=== PATIENT | male | born 1975 | race American Indian/Alaskan Native ===

== ENCOUNTER 2020-10-22 06:35 | Emergency (ER) | payer SELFPAY ==
[2020-10-22] MEDS ORDERED: ASPIRIN 325 MG TAB PO ONE (06:48)
[2020-10-22 07:03] LABS: Basophils # (Auto) 0.1 K/mm3 (0.0-0.1); Basophils % (Auto) 1.1 % (0.0-1.8); Eosinophils # (Auto) 0.4 K/mm3 (0.0-0.4); Eosinophils % (Auto) 4.1 % (0.0-4.3); Hematocrit 40.9 % (35.5-45.6); Hemoglobin 14.6 gm/dl (11.8-15.2); Lymphocytes # (Auto) 2.1 K/mm3 (1.2-5.4); Mean Corpuscular HGB Conc 36 % (32-34); Mean Corpuscular Volume 90 fl (84-94); Monocytes # (Auto) 0.6 K/mm3 (0.0-0.8); Monocytes % (Auto) 7.3 % (0.0-7.3); Platelet Count 300 K/mm3 (140-440); Red Blood Count 4.54 M/mm3 (3.65-5.03); Red Cell Distribution Width 13.2 % (13.2-15.2)
[2020-10-22 07:28] LABS: Alanine Aminotransferase 23 units/L (7-56); Albumin 4.6 g/dL (3.9-5); BUN/Creatinine Ratio 10; Blood Urea Nitrogen 9 mg/dL (9-20); Calcium 10.1 mg/dL (8.4-10.2); Hemolysis Index 4
--- NOTE | 2020-10-22 07:51 | XRay Report ---
CHEST 2 VIEWS INDICATION: sharp CP radiating to back. COMPARISON: None at this facility FINDINGS: Support devices: None. Heart: Within normal limits. Lungs/pleura: No acute air space or interstitial disease. No pneumothorax. Additional findings: None. IMPRESSION: No acute findings. Signer Name: Tariq Sims Jr, MD Signed: 10/22/2020 7:47 AM Workstation Name: [id number]
[2020-10-22] MEDS ORDERED: IBUPROFEN 800 MG TAB PO ONE (09:01)
--- NOTE | 2020-10-22 09:09 | Emergency Department Report ---
ED Chest Pain HPI - General Chief Complaint: Chest Pain Stated Complaint: CHEST PAINS PUI?: No Time Seen by Provider: 10/22/20 08:57 Source: patient Mode of arrival: Ambulatory Limitations: No Limitations - History of Present Illness Initial Comments: Chief complaint: "I started in my back." HPI: This is a 45-year-old male with history of hypertension who presents with back pain chest pain since yesterday. Patient states that the pain started in his back on yesterday morning. 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 Pain is now si tuated his left chest squeezing pain. Worse with palpation. Worse with movement. Worse with arm movement of the left side. Tums did not provide any relief. Ibuprofen provided mild relief. Patient does not have health insurance. Patient does not have access to primary care. 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 MD Complaint: chest pain -: Gradual, days(s) (1 day ago) Onset: during rest Pain Location: left chest Pain Radiation: none Severity: mild Severity scale (0 -10): 5 Quality: dull, squeezing Consistency: constant Improves With: rest Worsens With: palpation, movement Other Symptoms: other (Back pain). denies: cough Treatments Prior to Arrival: none - Related Data Previous Rx's Medication Instructions Recorded Last Taken Type Cyclobenzaprine [Flexeril] 10 mg PO TID PRN #20 tablet 10/22/20 Unknown Rx Ibuprofen [Motrin 400 MG tab] 400 mg PO TID 5 Days #15 tablet 10/22/20 Unknown Rx Allergies Allergy/AdvReac Type Severity Reaction Status Date / Time No Known Allergies Allergy Unverified 10/22/20 06:38 Heart Score - HEART Score History: Slightly suspicious EKG: Normal Age: < 45 Risk factors: 1-2 risk factors Troponin: < normal limit HEART Score: 1 - EKG Read Time Time EKG Completed: 06:41 EKG Read Time: 06:44 ED Review of Systems ROS: Stated complaint: CHEST PAINS Other details as noted in HPI Comment: All other systems reviewed and negative Constitutional: denies: fever, malaise Respiratory: denies: cough, shortness of breath Cardiovascular: chest pain, palpitations Gastrointestinal: denies: abdominal pain, nausea, vomiting Musculoskeletal: back pain ED Past Medical Hx - Past Medical History Previous Medical History?: Yes Hx Hypertension: Yes - Surgical History Past Surgical History?: No - Social History Smoking Status: Current Every Day Smoker Substance Use Type: Alcohol, Marijuana - Medications Home Medications: Home Medications Medication Instructions Recorded Confirmed Last Taken Type Cyclobenzaprine [Flexeril] 10 mg PO TID PRN #20 tablet 10/22/20 Unknown Rx Ibuprofen [Motrin 400 MG tab] 400 mg PO TID 5 Days #15 tablet 10/22/20 Unknown Rx ED Physical Exam - General Limitations: No Limitations General appearance: alert, in no apparent distress - Head Head exam: Present: atraumatic, normocephalic - Eye Eye exam: Present: normal appearance. Absent: scleral icterus, conjunctival injection, nystagmus - ENT ENT exam: Present: mucous membranes moist - Neck Neck exam: Present: normal inspection, full ROM - Respiratory Respiratory exam: Present: normal lung sounds bilaterally. Absent: respiratory distress - Cardiovascular Cardiovascular Exam: Present: regular rate, normal rhythm, normal heart sounds. Absent: systolic murmur, diastolic murmur, rubs, gallop - GI/Abdominal GI/Abdominal exam: Present: soft, normal bowel sounds. Absent: distended, tenderness, guarding - Rectal Rectal exam: Present: deferred - Neurological Exam Neurological exam: Present: alert, oriented X3 - Psychiatric Psychiatric exam: Present: normal affect, normal mood - Skin Skin exam: Present: warm, dry, intact, normal color. Absent: rash ED Course Vital Signs 10/22/20 06:38 Temperature 98.4 F Pulse Rate 117 H Respiratory 18 Rate Blood Pressure 164/105 O2 Sat by Pulse 96 Oximetry ED Medical Decision Making - Lab Data Result diagrams: 10/22/20 06:52 10/22/20 06:52 Laboratory Results - last 72 hr 10/22/20 10/22/20 06:52 06:52 WBC 8.6 RBC 4.54 Hgb 14.6 Hct 40.9 MCV 90 MCH 32 MCHC 36 H RDW 13.2 Plt Count 300 Lymph % (Auto) 24.0 [place] % (Auto) 7.3 Eos % (Auto) 4.1 Baso % (Auto) 1.1 Lymph # (Auto) 2.1 [place] # (Auto) 0.6 Eos # (Auto) 0.4 Baso # (Auto) 0.1 Seg Neutrophils % 63.5 Seg Neutrophils # 5.4 Sodium 135 L Potassium 3.3 L Chloride 96.7 L Carbon Dioxide 25 Anion Gap 17 BUN 9 Creatinine 0.9 Estimated GFR > 60 BUN/Creatinine Ratio 10 Glucose 133 H Calcium 10.1 Total Bilirubin 0.40 AST 18 ALT 23 Alkaline Phosphatase 74 Troponin T < 0.010 Total Protein 7.5 Albumin 4.6 Albumin/Globulin Ratio 1.6 - EKG Data EKG shows normal: sinus rhythm, axis, intervals, QRS complexes, ST-T waves Rate: tachycardia - EKG Data 10/22/20 09:07 EKG obtained 0641 EKG interpreted by me Sinus tachycardia rate 100 bpm normal axis normal intervals no ST-T sign ischemia - Radiology Data Radiology results: report reviewed Chest radiograph: No acute findings according to radiology report - Medical Decision Making 45-year-old male with history of hypertension presents with back pain chest pain. Pain is worse with palpation of the chest. Pain is worse with movement of the arm sitting position. Pain no longer is present in the back. I suspect chest wall strain. Troponin negative. EKG without ischemic changes. I prescribed ibuprofen and Flexeril. Referred to outpatient medicine physician. Critical care attestation.: If time is entered above; I have spent that time in minutes in the direct care of this critically ill patient, excluding procedure time. ED Disposition Clinical Impression: Chest wall muscle strain Disposition: DC-01 TO HOME OR SELFCARE Is pt being admited?: No Does the pt Need Aspirin: No Condition: Stable Instructions: Muscle Strain, [id number] Prescriptions: Cyclobenzaprine [Flexeril] 10 mg PO TID PRN #20 tablet PRN Reason: Muscle Spasm Ibuprofen [Motrin 400 MG tab] 400 mg PO TID 5 Days #15 tablet Referrals: SID CAMPOVERDE MD [Staff Physician] - 3-5 Days Forms: Work/School Release Form(ED)
[2020-10-22 09:18] VITALS: BP 171/116
--- NOTE | 2020-10-22 10:04 | Electrocardiograph Report ---
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
== END 2020-10-22 09:00 | disposition home or self-care (01) ==
LOC: ED 06:35
DX: S29.011A Strain of muscle and tendon of front wall of thorax, initial encounter (principal); I10 Essential (primary) hypertension; F17.200 Nicotine dependence, unspecified, uncomplicated; F12.90 Cannabis use, unspecified, uncomplicated; Z79.899 Other long term (current) drug therapy; X58.XXXA Exposure to other specified factors, initial encounter; Y93.89 Activity, other specified; Y92.89 Other specified places as the place of occurrence of the external cause; Y99.8 Other external cause status
CPT/HCPCS: 36415; 71046; 80053; 84484; 85025; 93005; 99283

== ENCOUNTER 2020-11-19 06:16 | Emergency (ER) | payer SELFPAY ==
[2020-11-19 07:26] VITALS: BP 158/107
--- NOTE | 2020-11-19 08:43 | Emergency Department Report ---
ED Lower Extremity HPI - General Chief Complaint: Extremity Injury, Lower Stated Complaint: RT KNEE PAIN/POSS INJURY Time Seen by Provider: 11/19/20 08:32 Source: patient Mode of arrival: Ambulatory Limitations: No Limitations - History of Present Illness Initial Comments: 45-year-old -[place] male presents to the emergency room for right knee pain that pops. Patient states that he has a history of ACL repair of his left knee and feels that he is overused his right knee. Patient denies any initial injury. Patient states that pain helps when he wears a knee brace. Complaint: knee injury (rt) Onset/Timin Injury: Knee: Right Severity scale (0 -10): 8 Improves With: immobilization Worsens With: weight bearing, movement Associated Symptoms: snap/pop sensation Treatments Prior to Arrival: NSAIDS - Related Data Previous Rx's Medication Instructions Recorded Last Taken Type Cyclobenzaprine [Flexeril] 10 mg PO TID PRN #20 tablet 10/22/20 Unknown Rx Ibuprofen [Motrin 400 MG tab] 400 mg PO TID 5 Days #15 tablet 10/22/20 Unknown Rx Meloxicam [Mobic] 15 mg PO QDAY #30 tablet 11/19/20 Unknown Rx Allergies Allergy/AdvReac Type Severity Reaction Status Date / Time No Known Allergies Allergy Verified 11/19/20 07:24 ED Review of Systems ROS: Stated complaint: RT KNEE PAIN/POSS INJURY Other details as noted in HPI Comment: All other systems reviewed and negative ED Past Medical Hx - Past Medical History Hx Hypertension: Yes - Surgical History Additional Surgical History: knee/hand - Social History Smoking Status: Current Every Day Smoker Substance Use Type: Alcohol, Marijuana - Medications Home Medications: Home Medications Medication Instructions Recorded Confirmed Last Taken Type Cyclobenzaprine [Flexeril] 10 mg PO TID PRN #20 tablet 10/22/20 Unknown Rx Ibuprofen [Motrin 400 MG tab] 400 mg PO TID 5 Days #15 tablet 10/22/20 Unknown Rx Meloxicam [Mobic] 15 mg PO QDAY #30 tablet 11/19/20 Unknown Rx ED Physical Exam - General Limitations: No Limitations General appearance: alert, in no apparent distress - Head Head exam: Present: atraumatic, normocephalic - Eye Eye exam: Present: normal appearance - ENT ENT exam: Present: mucous membranes moist - Neck Neck exam: Present: normal inspection, full ROM - Respiratory Respiratory exam: Absent: accessory muscle use - Cardiovascular Cardiovascular Exam: Present: regular rate - Expanded Lower Extremity Exam Right Knee exam: Present: full ROM, crepidus, full knee extension. Absent: tenderness, swelling, dislocation, erythema, effusion Lower Leg exam: Present: normal inspection, full ROM. Absent: tenderness Ankle exam: Present: normal inspection, full ROM. Absent: tenderness, swelling Neuro vascular tendon exam: Present: no vascular compromise - Back Exam Back exam: Present: normal inspection - Neurological Exam Neurological exam: Present: alert, oriented X3 - Psychiatric Psychiatric exam: Present: normal affect, normal mood - Skin Skin exam: Present: warm, dry, intact, normal color. Absent: rash ED Course Vital Signs 11/19/20 07:24 Temperature 98.0 F Pulse Rate 94 H Respiratory 16 Rate Blood Pressure 158/107 O2 Sat by Pulse 99 Oximetry ED Lower Extremity MDM - Radiology Data Radiology results: report reviewed [facility] [address] [place] [address] XRay Report Signed Patient: CHERELLE JOSEPH MR#: [id number] 350 : 1975 Acct:[id number] Age/Sex: 45 / M ADM Date: 11/19/20 Loc: ED Attending Dr: Ordering Physician: MAGDI SIMENTAL Date of Service: 11/19/20 Procedure(s): XR knee 3V RT Accession Number(s): [id number] cc: MAGDI SIMENTAL Fluoro Time In Minutes: RIGHT KNEE 3 VIEWS INDICATION: Right knee injury and pain. COMPARISON: None. IMPRESSION: Moderate to severe osteoarthritic changes are identified in the m edial compartment and patellofemoral space. There is relative sparing of the lateral compartment. Moderate tibial spine spurring is also identified. No acute osseous injury or suspicious bone lesion is detected. A large joint effusion is identified on the lateral image. Signer Name: Tariq Sims Jr, MD Signed: 11/19/2020 8:53 AM Workstation Name: [id number] Transcribed By: TTR Dictated By: TARIQ SIMS JR, MD Electronically Authenticated By: TARIQ SIMS JR, MD Signed Date/Time: 11/19/20852 DD/ 0852 TD/TT: Print Critical care attestation.: If time is entered above; I have spent that time in minutes in the direct care of this critically ill patient, excluding procedure time. ED Disposition Clinical Impression: Osteoarthritis of right knee Disposition: DC-01 TO HOME OR SELFCARE Is pt being admited?: No Does the pt Need Aspirin: No Condition: Stable Instructions: Preventing Osteoarthritis, Adult, Arthritis, [id number] Additional Instructions: Your x-rays of your knee shows moderate to severe arthritis. I recommend taking pain medication and following up with the orthopedic provider. Continue wearing your knee immobilizer as that helps with your discomfort. Prescriptions: Meloxicam [Mobic] 15 mg PO QDAY #30 tablet Referrals: WILBER BENJAMIN MD [Staff Physician] - 3-5 Days Forms: Work/School Release Form(ED) Time of Disposition: 09:34
--- NOTE | 2020-11-19 08:58 | XRay Report ---
RIGHT KNEE 3 VIEWS INDICATION: Right knee injury and pain. COMPARISON: None. IMPRESSION: Moderate to severe osteoarthritic changes are identified in the medial compartment and p atellofemoral space. There is relative sparing of the lateral compartment. Moderate tibial spine spur ring is also identified. No acute osseous injury or suspicious bone lesion is detected. A large joint effusion is identified on the lateral image. Signer Name: Tariq Sims Jr, MD Signed: 11/19/2020 8:53 AM Workstation Name: [id number]
== END 2020-11-19 09:48 | disposition home or self-care (01) ==
LOC: ED 06:16
DX: M17.11 Unilateral primary osteoarthritis, right knee (principal); I10 Essential (primary) hypertension; F17.200 Nicotine dependence, unspecified, uncomplicated; F12.90 Cannabis use, unspecified, uncomplicated; Z79.899 Other long term (current) drug therapy; Z98.890 Other specified postprocedural states

== ENCOUNTER 2021-04-02 18:16 | Emergency (ER) | payer SELFPAY ==
[2021-04-02] MEDS ORDERED: SODIUM CHLORIDE 0.9% 1000 ML 1,000 ML IV ONE (18:24)
[2021-04-02] MEDS ORDERED: LORazepam 2 MG/ML VIAL IV ONE (18:25)
[2021-04-02 18:53] LABS: Basophils # (Auto) 0.1 K/mm3 (0.0-0.1); Basophils % (Auto) 0.8 % (0.0-1.8); Eosinophils # (Auto) 0.3 K/mm3 (0.0-0.4); Eosinophils % (Auto) 2.9 % (0.0-4.3); Hematocrit 45.1 % (35.5-45.6); Lymphocytes # (Auto) 4.2 K/mm3 (1.2-5.4); Lymphocytes % (Auto) 41.9 % (13.4-35.0); Mean Corpuscular HGB Conc 33 % (32-34); Mean Corpuscular Volume 93 fl (84-94); Monocytes # (Auto) 0.7 K/mm3 (0.0-0.8); Monocytes % (Auto) 7.3 % (0.0-7.3); Platelet Count 398 K/mm3 (140-440); Red Blood Count 4.87 M/mm3 (3.65-5.03); Red Cell Distribution Width 14.1 % (13.2-15.2)
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
[2021-04-02 19:09] LABS: BUN/Creatinine Ratio 11; Blood Urea Nitrogen 12 mg/dL (9-20); Calcium 9.5 mg/dL (8.4-10.2); Hemolysis Index 10
[2021-04-02] MEDS ORDERED: TETANUS,DIPH,PERTUSS(ACELL) VACCINE 0.5 ML SYRINGE IM ONE (19:15)
[2021-04-02] MEDS ORDERED: DICYCLOMINE 20 MG/2 ML INJ IM ONE (19:29)
[2021-04-02] MEDS ORDERED: FAMOTIDINE 20 MG/2 ML INJ IV ONE (19:29)
[2021-04-02] MEDS ORDERED: HYDROcodone/ACETAMINOPHEN 7.5-325MG TAB PO ONE (19:42)
[2021-04-02] MEDS: KETOROLAC 30 MG/1 ML INJ IV ONE ×2 (19:46→19:48)
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
[2021-04-02 22:02] VITALS: BP 161/97
== END 2021-04-02 21:50 | disposition home or self-care (01) ==
LOC: ED 18:16
DX: S92.492A Other fracture of left great toe, initial encounter for closed fracture (principal); F14.120 Cocaine abuse with intoxication, uncomplicated; I10 Essential (primary) hypertension; F17.200 Nicotine dependence, unspecified, uncomplicated; Z72.89 Other problems related to lifestyle; Z79.899 Other long term (current) drug therapy; W34.00XA Accidental discharge from unspecified firearms or gun, initial encounter; Y93.89 Activity, other specified; Y92.89 Other specified places as the place of occurrence of the external cause; Y99.8 Other external cause status
CPT/HCPCS: 29515; 36415; 73630; 80048; 84484; 85025; 90471; 90715; 96365; 96372; 96375; 99284; J0500; J0690; J1885; J3490; J7030; Q0162

== ENCOUNTER 2021-09-15 14:00 | Emergency (ER) | payer BC ==
[2021-09-15] MEDS ORDERED: dexAMETHasone 4 MG/ML VIAL IM ONE (17:00)
[2021-09-15] MEDS ORDERED: KETOROLAC 10 MG TAB PO ONE (17:01)
[2021-09-15] MEDS ORDERED: CYCLOBENZAPRINE 10 MG TAB PO ONE (17:01)
[2021-09-15] MEDS ORDERED: ACETAMINOPHEN W/CODEINE 300-30 MG TAB PO ONE (17:01)
--- NOTE | 2021-09-15 17:09 | Emergency Department Report ---
ED Extremity Problem HPI - General Chief complaint: Extremity Problem,Nontraumatic Stated complaint: RIGHT KNEE AND HIP PAIN Time Seen by Provider: 09/15/21 16:34 Source: patient Mode of arrival: Ambulatory Limitations: No Limitations - History of Present Illness Initial comments: 46-year-old black male presents to the emergency department for evaluation of 1 week history of worsening right knee pain. He states that he has a history of arthritis to his right knee, but the past few days pain has been worse. He denies injury or trauma but states that pain is 8 out of 10 and worse with ambulation. He denies fever or drainage from area. MD Complaint: extremity pain, extremity swelling -: Gradual, week(s) Location: right, knee (1) History of Same: Yes -: No myalgia, Yes arthralgia, No fever, No associated dyspnea, No associated chest pain Severity scale (0 -10): 8 Quality: aching Consistency: constant Worsens with: weight bearing, walking Associated Symptoms: arthralgias. denies: chest pain, shortness of breath, fever, myalgias, rash - Related Data Previous Rx's Medication Instructions Recorded Last Taken Type Cyclobenzaprine [Flexeril] 10 mg PO TID PRN #20 tablet 10/22/20 Unknown Rx Ibuprofen [Motrin 400 MG tab] 400 mg PO TID 5 Days #15 tablet 10/22/20 Unknown Rx Meloxicam [Mobic] 15 mg PO QDAY #30 tablet 11/19/20 Unknown Rx Amoxicillin/Potassium Clav 1 each PO BID #14 tablet 04/02/21 Unknown Rx [Augmentin 875-125 Tablet] HYDROcodone/APAP 5-325 [[place] 1 each PO Q6HR PRN #20 tablet 04/02/21 Unknown Rx 5/325] Ibuprofen [Motrin 800 MG tab] 800 mg PO Q8HR PRN #20 tablet 04/02/21 Unknown Rx Ondansetron [Zofran Odt] 4 mg PO Q8HR #10 tab.rapdis 04/02/21 Unknown Rx Lidocaine [Lidoderm] 1 each TP DAILY PRN #10 patch 09/15/21 Unknown Rx Naproxen [Naprosyn] 500 mg PO BID #14 tab 09/15/21 Unknown Rx methylPREDNISolone [Medrol 4MG 4 mg PO DAILY #1 pack 09/15/21 Unknown Rx DOSEPAK (21 tabs)] Allergies Allergy/AdvReac Type Severity Reaction Status Date / Time No Known Allergies Allergy Verified 09/15/21 16:54 ED Review of Systems ROS: Stated complaint: RIGHT KNEE AND HIP PAIN Other details as noted in HPI Comment: All other systems reviewed and negative Constitutional: denies: chills, fever ENT: denies: congestion Respiratory: denies: cough, orthopnea, shortness of breath, SOB with exertion, SOB at rest, stridor, wheezing Cardiovascular: denies: chest pain, palpitations, dyspnea on exertion, orthopnea, edema, syncope, paroxysmal nocturnal dyspnea Gastrointestinal: denies: abdominal pain, nausea, vomiting Genitourinary: denies: urgency, dysuria, frequency, hematuria, discharge Musculoskeletal: arthralgia. denies: back pain Neurological: denies: headache, weakness, numbness, paresthesias, confusion, abnormal gait, vertigo ED Past Medical Hx - Past Medical History Hx Hypertension: Yes - Surgical History Additional Surgical History: knee/hand - Social History Smoking Status: Never Smoker Substance Use Type: None - Medications Home Medications: Home Medications Medication Instructions Recorded Confirmed Last Taken Type Cyclobenzaprine [Flexeril] 10 mg PO TID PRN #20 tablet 10/22/20 09/15/21 Unknown Rx Ibuprofen [Motrin 400 MG tab] 400 mg PO TID 5 Days #15 tablet 10/22/20 09/15/21 Unknown Rx Meloxicam [Mobic] 15 mg PO QDAY #30 tablet 11/19/20 09/15/21 Unknown Rx Amoxicillin/Potassium Clav 1 each PO BID #14 tablet 04/02/21 09/15/21 Unknown Rx [Augmentin 875-125 Tablet] HYDROcodone/APAP 5-325 [[place] 1 each PO Q6HR PRN #20 tablet 04/02/21 09/15/21 Unknown Rx 5/325] Ibuprofen [Motrin 800 MG tab] 800 mg PO Q8HR PRN #20 tablet 04/02/21 09/15/21 Unknown Rx Ondansetron [Zofran Odt] 4 mg PO Q8HR #10 tab.rapdis 04/02/21 09/15/21 Unknown Rx Lidocaine [Lidoderm] 1 each TP DAILY PRN #10 patch 09/15/21 Unknown Rx Naproxen [Naprosyn] 500 mg PO BID #14 tab 09/15/21 Unknown Rx methylPREDNISolone [Medrol 4MG 4 mg PO DAILY #1 pack 09/15/21 Unknown Rx DOSEPAK (21 tabs)] ED Physical Exam - General Limitations: No Limitations General appearance: alert, in no apparent distress - Head Head exam: Present: atraumatic - Eye Eye exam: Present: normal appearance. Absent: conjunctival injection - Neck Neck exam: Present: normal inspection, full ROM. Absent: lymphadenopathy - Respiratory Respiratory exam: Absent: respiratory distress - Cardiovascular Cardiovascular Exam: Present: regular rate - GI/Abdominal GI/Abdominal exam: Present: soft. Absent: distended - Expanded Lower Extremity Exam Right Knee exam: Present: full ROM, tenderness, swelling, effusion. Absent: abrasion, laceration, ecchymosis, deformity, crepidus, dislocation, erythema Neuro vascular tendon exam: Present: no vascular compromise. Absent: pulse deficit, abnormal cap refill, motor deficit, sensory deficit, extremity cold to touch, pallor Gait: Positive: observed and limited by pain - Back Exam Back exam: Present: normal inspection. Absent: CVA tenderness (R), CVA tenderness (L) - Neurological Exam Neurological exam: Present: alert, oriented X3 - Psychiatric Psychiatric exam: Present: normal affect, normal mood - Skin Skin exam: Present: warm, dry, intact, normal color ED Course Vital Signs 09/15/21 09/15/21 14:42 16:51 Temperature 98.8 F 98.8 F Pulse Rate 98 H 80 Respiratory 18 18 Rate Blood Pressure 152/92 125/78 [Right] O2 Sat by Pulse 99 100 Oximetry ED Medical Decision Making - Medical Decision Making 46-year-old black male presents to the emergency department for evaluation of 1 week history of worsening right knee pain. He states that he has a history of arthritis to his right knee, but the past few days pain has been worse. He denies injury or trauma but states that pain is 8 out of 10 and worse with ambulation. He denies fever or drainage from area. Per previous x-ray, patient has known moderate to severe right knee osteoarthritis. He will be treated with Decadron 8 mg IM, Flexeril 10 mg p.o., and Toradol 10 mg p.o. while in the emergency department then discharged home with Medrol Dosepak, naproxen, and Lidoderm patch to use as needed for pain. He is advised to follow-up with orthopedic for further evaluation and management. He verbalizes understanding of and agreement with plan of care. Critical care attestation.: If time is entered above; I have spent that time in minutes in the direct care of this critically ill patient, excluding procedure time. ED Disposition Clinical Impression: Right knee pain Qualifiers: Chronicity: chronic Qualified Code(s): M25.561 - Pain in right knee; G89.29 - Other chronic pain Disposition: HOME / SELF CARE / HOMELESS Is pt being admited?: No Does the pt Need Aspirin: No Condition: Stable Instructions: Musculoskeletal Pain, Acute Knee Pain, Adult, [id number], Joint Pain, [id number], How to Use Cold Therapy, [id number], Arthritis, [id number] Additional Instructions: Take medications as prescribed. Follow-up with orthopedics for further evaluation and management. Return to the ER as needed. Prescriptions: Lidocaine [Lidoderm] 1 each TP DAILY PRN #10 patch PRN Reason: Pain, Moderate (4-6) methylPREDNISolone [Medrol 4MG DOSEPAK (21 tabs)] 4 mg PO DAILY #1 pack Naproxen [Naprosyn] 500 mg PO BID #14 tab Referrals: WILBER BENJAMIN MD [Staff Physician] - 3-5 Days Forms: Work/School Release Form(ED) Time of Disposition: 17:26
[2021-09-15 18:05] VITALS: BP 118/74
== END 2021-09-15 18:05 | disposition home or self-care (01) ==
LOC: ED 14:00
DX: M25.561 Pain in right knee (principal); I10 Essential (primary) hypertension; Z98.890 Other specified postprocedural states
CPT/HCPCS: 96372; 99282; J1100

== ENCOUNTER 2021-11-20 11:04 | Outpatient (CLI) | payer BC ==
--- NOTE | 2021-11-20 13:44 | XRay Report ---
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 COMPARISON: None available. FINDINGS: VERTEBRAE: No acute fracture. No significant malalignment. DISC SPACES / FACET JOINTS:No significant abnormality. PARASPINAL SOFT TISSUES:No significant abnormality. ADDITIONAL FINDINGS: None. Signer Name: Moy Carlos DO Signed: 11/20/2021 1:40 PM Workstation Name: [id number]
--- NOTE | 2021-11-20 13:45 | XRay Report ---
BILATERAL KNEE 2 VIEW(S) INDICATION / CLINICAL INFORMATION: M25.561 AND M25.562 BILATERAL KNEE PAIN COMPARISON: None available. FINDINGS: BONES / JOINT(S): No acute fracture or subluxation. There is severe tricompartment DJD of the left kn ee. There is moderate to severe tricompartment DJD of the right knee. SOFT TISSUES: No significant abnormality. ADDITIONAL FINDINGS: None. Signer Name: Moy Carlos DO Signed: 11/20/2021 1:41 PM Workstation Name: [id number]
== END 2021-11-20 11:05 | disposition home or self-care (01) ==
LOC: XRAY 11:04
PROVIDERS: ATTEND Orthopaedic Surgery
DX: M17.0 Bilateral primary osteoarthritis of knee (principal); M46.21 Osteomyelitis of vertebra, occipito-atlanto-axial region
CPT/HCPCS: 72100; 73565